=== PATIENT | female | born 1980 | race African-American/Black ===

== ENCOUNTER 2017-03-02 13:37 | Emergency (ER) | payer BC ==
[2017-03-02 13:45] VITALS: BP 144/89; PULSE 78; TEMP 98.5; BMI 42.3
--- NOTE | 2017-03-02 14:02 | PDOC ---
Attending Attestation - Resident Resident Name: Hermelindo Monk - ED Attending Attestation I have performed the following: I have examined & evaluated the patient, The case was reviewed & discussed with the resident, I agree w/resident's findings & plan, Exceptions are as noted - HPI HPI: 03/02/17 14:41 36y F hx of gestational htn, presents with htn, headache. The patient notes she formerly was on amlodipine but stopped taking it earlier this year. The pt had intermittent headache, and endorsed having a pounding headache when she woke up this morning, it was diffuse, moderate, no associated visionchanges, n/v, neck pain, she took a motrin with significant improvement. The pt ntoes she also had some tingling on her L arm when she woke up for several minutes. she notes she typically sleeps n her left arm. The patient denies any chest pain, sob, leg swelling, bateman, vision changes, back pain, abd pain. pts exam unremarkable general: no distress, well appearing, smiling, cardiac exam: rrr. no mrg pulm: clear to ascultation LE: no lower extremity edema vitals noted for borderline htn - tension headache suspect her arm tingling secondary to peripheral neuropathy fromsleeping on it asymptomatic htn will dc with pmd fu return precautions were discussed I discussed the physical exam findings, ancillary test results and final diagnoses with the patient. I answered all of the patient's questions. The patient was satisfied with the care received and felt comfortable with the discharge plan and treatment plan. The patient will call their primary care physician within 24 hours to arrange follow-up and will return to the Emergency Department with any new, persistent or worsening symptoms. - Physicial Exam PE: 03/02/17 14:48 see above - Medical Decision Making 03/02/17 14:48 see above
[2017-03-02] MEDS ORDERED: ACETAMINOPHEN 325 MG TABLET (FP) PO ONE (14:10)
--- NOTE | 2017-03-02 14:18 | PDOC ---
History of Present Illness <MarkBenedicto - Last Filed: 03/02/17 14:52> - History of Present Illness Initial Comments: 03/02/17 14:13 The patient 36 year old female with a history of HTN who presents for evaluation of headache. The patient reports that she woke up this morning with a pounding headache that she describes as a migraine. She took some advil which improved her headache, however was concerned that her BP was elevated and decided to present to the ED for evaluation. She states that she take amlodipine for BP management, but ran out several months ago and has not taken it. She states she does not have a primary care provider that she follows with on a regular basis. She denies vision changes, fevers, chills, SOB, chest pain , abdominal pain, or changes with urination or bowel movements. <Hermelindo Monk - Last Filed: 03/02/17 15:12> - General Chief Complaint: Blood Pressure Problem Stated Complaint: HEADACHES, HIGH BP Time Seen by Provider: 03/02/17 13:53 Past History <Benedicto Flores - Last Filed: 03/02/17 14:52> - Past Medical History COPD: No HTN: Yes - Suicide/Smoking/Psychosocial Hx Smoking Status: No Smoking History: Never smoked Number of Cigarettes Smoked Daily: 0 Hx Alcohol Use: Yes (SOCIAL) Drug/Substance Use Hx: No Substance Use Type: None <Hermelindo Monk - Last Filed: 03/02/17 15:12> - Past Medical History Allergies/Adverse Reactions: Allergies Allergy/AdvReac Type Severity Reaction Status Date / Time No Known Allergies Allergy Verified 03/02/17 14:14 Home Medications: Ambulatory Orders NK [No Known Home Medication] 03/02/17 Review of Systems - Review of Systems Comments:: 03/02/17 14:24 Constitutional: No fevers, chills, fatigue, malaise HEENT: No Rhinorrhea, nasal congestion, visual changes Cardiovascular: No chest pain, syncope, palpitations, lightheadedness Respiratory: No Cough, SOB, Hemoptysis, Gastrointestinal: No Abdominal pain, Nausea, Vomiting, Constipation, Diarrhea, Melena Genitourinary: No Dysuria, Frequency, Urgency, Hesitancy, Hematuria, Flank pain Musculoskeletal: No Myalgia, arthralgia Skin: No rashes, bruising, pallor Neurologic: Headache. No Dizziness, Numbness, Weakness, or Tingling Psychiatric: No Hallucinations. No SI or HI <Hermelindo Monk - Last Filed: 03/02/17 15:12> *Physical Exam - Vital Signs Last Vital Signs Temp Pulse Resp BP Pulse Ox 98.5 F 78 20 144/89 99 03/02/17 13:40 03/02/17 13:40 03/02/17 13:40 03/02/17 13:40 03/02/17 13:40 <Benedicto Flores - Last Filed: 03/02/17 14:52> - Vital Signs Last Vital Signs Temp Pulse Resp BP Pulse Ox 98.5 F 78 20 144/89 99 03/02/17 13:40 03/02/17 13:40 03/02/17 13:40 03/02/17 13:40 03/02/17 13:40 - Physical Exam Comments: 03/02/17 14:25 General Appearance: Nourished. No Apparent Distress HEENT: EOMI, LUCHO. No Pharyngeal Erythema, Tonsillar Exudate, Tonsillar Erythema Neck: No Cervical Lymphadenopathy Respiratory/Chest: Lungs Clear, Normal Breath Sounds. No Crackles, Rales, Rhonchi, Wheezing Cardiovascular: Regular Rhythm, Regular Rate. No JVD, Murmur, Gallops, Rubs Gastrointestinal/Abdominal: Normal Bowel Sounds, Soft. No Guarding, Rebound, Tenderness Musculoskeletal: No CVA Tenderness Extremity: Normal Capillary Refill Integumentary: Normal Color, Dry, Warm Neurologic: speech pathologist assistant II-XII NML intact, Fully Oriented, Alert, Normal Mood/Affect, Normal Response, <Hermelindo Monk - Last Filed: 03/02/17 15:12> ED Treatment Course - Medications Given in the ED: ED Medications Discontinued Medications Generic Name Dose Route Start Last Admin Trade Name Freq PRN Reason Stop Dose Admin Acetaminophen 650 mg 03/02/17 14:10 03/02/17 14:25 Tylenol - PO 03/02/17 14:11 650 mg ONCE ONE Administration <Benedicto Flores - Last Filed: 03/02/17 14:52> Medical Decision Making - Medical Decision Making 03/02/17 14:25 The patient 36 year old female with a history of HTN who presents for evaluation of headache. The patient's BP in triage is 144/89 and appears clinically well on exam. Her headache is likely due to her elevated pressure and her elevated pressure is likely due to medication non-compliance. We discussed the importance of taking her medication to manage her pressures. She requested a referral for a primary care provider to follow up with. We will treat her headache here in the ED with tylenol and reassess. 03/02/17 15:00 The patient reports improvement in her symptoms. We will refer the patient to a primary care provider for further management of blood pressure. We discussed the plan with the patient who voiced understanding and is agreeable. <Hermelindo Monk - Last Filed: 03/02/17 15:12> *DC/Admit/Observation/Transfer - Discharge Dispostion Admit: No <Benedicto Flores - Last Filed: 03/02/17 14:52> - Discharge Dispostion Admit: No <Hermelindo Monk - Last Filed: 03/02/17 15:12> Diagnosis at time of Disposition: Tension headache, Elevated blood pressure - Discharge Dispostion Disposition: HOME Condition at time of disposition: Improved - Referrals Referrals: [facility] [place] [facility] [place] [Provider Group] - Patient Instructions Printed Discharge Instructions: DI for High Blood Pressure Additional Instructions: Return to the emergency department immediately with ANY new, persistent or worsening symptoms. Your blood pressure is slightly elevated here please follow-up with your doctor to have this evaluated for the need of medical management. You MUST call and follow up with your doctor tomorrow for further evaluation of your symptoms. Results were discussed with you. Please make sure your doctor reviews the results of your emergency evaluation. Print Language: PASHTO
[2017-03-02] MEDS ORDERED: ACETAMINOPHEN 325 MG TABLET (FP) ONE (14:23)
== END 2017-03-02 15:07 | disposition home or self-care (01) ==
LOC: JER 13:37
DX: G44.209 Tension-type headache, unspecified, not intractable (principal); I10 Essential (primary) hypertension
CPT/HCPCS: 99282-25

== ENCOUNTER 2019-05-15 09:16 | Emergency (ER) | payer BC ==
[2019-05-15 09:31] VITALS: BP 156/90; PULSE 112; TEMP 102; BMI 39.9
[2019-05-15] MEDS ORDERED: IBUPROFEN 600 MG TABLET (FP) PO ONE ×2 (09:58→10:00)
--- NOTE | 2019-05-15 10:46 | PDOC ---
History of Present Illness - General Chief Complaint: Cold Symptoms Stated Complaint: COLD SYMPTOMS Time Seen by Provider: 05/15/19 09:31 History Source: Patient Exam Limitations: No Limitations - History of Present Illness Initial Comments: 05/15/19 10:47 Patient is a 38-year-old female who presents to the ED with complaint of fever, body aches and sore throat since yesterday. She states it started after she got home from work yesterday. 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 The patient has a history of hypertension and denies any allergies to medications. She does admit to taking DayQuil which did not help her very much. She denies any shortness of breath or cough. Past History - Past Medical History Allergies/Adverse Reactions: Allergies Allergy/AdvReac Type Severity Reaction Status Date / Time No Known Allergies Allergy Verified 05/15/19 09:26 Home Medications: Ambulatory Orders Penicillin V Potassium [Pen Vee K -] 500 mg PO BID 10 Days #20 tablet 05/15/19 COPD: No HTN: Yes - Immunization History Immunization Up to Date: Yes - Psycho Social/Smoking Cessation Hx Smoking Status: No Smoking History: Unknown if ever smoked Have you smoked in the past 12 months: No Number of Cigarettes Smoked Daily: 0 Information on smoking cessation initiated: No Hx Alcohol Use: No Drug/Substance Use Hx: No Substance Use Type: None Review of Systems - Review of Systems Comments:: 05/15/19 10:48 - Review of Systems Able to Perform ROS?: Yes Constitutional: No: Loss of Appetite, Night Sweats, Weakness; Positive: Fever, Chills HEENTM: No: Eye Pain, Vision changes, Ear Pain, Throat Swelling, Mouth Pain, Difficulty Swallowing; Positive: Throat Pain Respiratory: No: Cough, Shortness of Breath, Wheezing, Sputum Production Cardiac (ROS): No: Chest Pain, Chest Tightness, Palpitations, Irregular Heart Beat, Edema ABD/GI: No: Nausea, Vomiting, Abdominal Pain, Diarrhea : No Dysuria, No Hematuria, No Frequency, No Urgency Musculoskeletal: No: Muscle Pain, Back Pain, Joint Pain, Muscle Weakness, Neck Pain Integumentary: No: Lesions, Rash Neurological: No: Headache, Numbness, Tingling, Weakness, Speech Difficulties *Physical Exam - Vital Signs Last Vital Signs Temp Pulse Resp BP Pulse Ox 102.0 F H 112 H 16 156/90 100 05/15/19 09:20 05/15/19 09:20 05/15/19 09:20 05/15/19 09:20 05/15/19 09:20 - Physical Exam 05/15/19 10:49 - Physical Exam General Appearance: Nourished, Appropriately Dressed, No Distress, Nontoxic appearing HEENT: EOMI, Normal Voice, No Muffled/Hoarse voice, No Nasal Congestion, No Rhinorrhea, Hearing Grossly Normal, TMs Normal, No TM Bulging, No TM Dullness, No TM Erythema; Positive pharyngeal and tonsillar erythema with exudates appreciated on the left. Airway patent. Uvula nonedematous. Neck: Supple, Anterior cervical lymphadenopathy appreciated bilateral. No Rigidity, No Decreased range of motion Respiratory/Chest: Lungs Clear, Normal Breath Sounds. No Respiratory Distress, No Accessory Muscle Use Cardiovascular: Regular Rhythm, Regular Rate, S1, S2 Gastrointestinal/Abdominal: Normal Bowel Sounds, Soft. Musculoskeletal: Normal Inspection. No Decreased Range of Motion Extremity: Normal Capillary Refill, Normal Inspection Integumentary: Normal Color, Dry. No Rash Neurologic: car groomer II-XII NML intact, Fully Oriented, Alert, Normal Mood/Affect, Normal Response ED Treatment Course - Medications Given in the ED: ED Medications Discontinued Medications Generic Name Dose Route Start Last Admin Trade Name Tomq PRN Reason Stop Dose Admin Ibuprofen 600 mg 05/15/19 09:58 05/15/19 10:01 Motrin - PO 05/15/19 09:59 600 mg ONCE ONE Administration Medical Decision Making - Medical Decision Making 05/15/19 9:50 Patient is a 38-year-old female with fever, sore throat and body aches. -A strep and a flu swab were sent -Motrin was given in the ED -Will reassess 05/15/19 10:51 The patient has been made aware that she has strep pharyngitis. Prescription for penicillin VK was sent to her pharmacy. She should get plenty rest and drink plenty of fluids. She has been instructed to take her antibiotics and complete the entire course, and to take Tylenol or ibuprofen for fevers or pain.. She has been encouraged to follow-up with her primary doctor within 1 to 2 days for repeat evaluation. She understands and agrees with this treatment and plan and she is stable for discharge. Discharge - Discharge Information Problems reviewed: Yes Clinical Impression/Diagnosis: Strep throat Condition: Stable Disposition: HOME - Additional Discharge Information Prescriptions: Penicillin V Potassium [Pen Vee K -] 500 mg PO BID 10 Days #20 tablet - Follow up/Referral Referrals: Med Samson MD [Primary Care Provider] - - Patient Discharge Instructions Patient Printed Discharge Instructions: DI for Strep Throat Additional Instructions: Get plenty of rest and drink plenty of fluids. Take the antibiotics as prescribed and complete the entire course even if you feel better. Take Tylenol or ibuprofen for fevers. Follow-up with your primary doctor within 1 to 2 days for repeat evaluation. - Post Discharge Activity Work/Back to School Note: Back to Work
== END 2019-05-15 10:55 | disposition home or self-care (01) ==
LOC: JER 09:16
DX: J02.0 Streptococcal pharyngitis (principal); B95.0 Streptococcus, group A, as the cause of diseases classified elsewhere
CPT/HCPCS: 87804; 87880; 99281-25

== ENCOUNTER 2021-02-05 04:27 | Day surgery (SDC) | payer BC ==
[2021-02-01 10:15] VITALS: BMI 39.9
[2021-02-05] MEDS ORDERED: PROPOFOL 20 ML ONE (07:21)
[2021-02-05] MEDS ORDERED: MIDAZOLAM HCL 2 MG/2 ML SINGLE DOSE VIAL ONE (07:21)
[2021-02-05] MEDS ORDERED: SEVOFLURANE 250 ML BTL ONE (07:23)
[2021-02-05] MEDS ORDERED: ceFAZolin SODIUM 1 GM VIAL IVPB ONE (08:45)
[2021-02-05] MEDS ORDERED: KETOROLAC TROMETHAMINE 30 MG/1 ML VIAL ONE ×2 (09:38→10:24)
[2021-02-05] MEDS ORDERED: ceFAZolin SODIUM 1 GM VIAL ONE (09:38)
[2021-02-05] MEDS ORDERED: LIDOCAINE HCL/PF 2% SDV 5ML VIAL ONE (09:38)
[2021-02-05] MEDS ORDERED: DEXAMETHASONE SOD PHOSPHATE 4 MG/1 ML VIAL ONE (09:38)
[2021-02-05] MEDS ORDERED: ACETAMINOPHEN INJECTION 100 ML IVPB ONE (10:00)
[2021-02-05] MEDS ORDERED: ACETAMINOPHEN 1000 MG/100 ML VIAL (NON FORMULARY) IVPB ONE ×2 (10:00→10:32)
[2021-02-05] MEDS ORDERED: ONDANSETRON 4 MG/2 ML VIAL IVPUSH PRN (10:32)
[2021-02-05] MEDS ORDERED: oxyCODONE HCL 5 MG TABLET PO PRN ×2 (10:32)
[2021-02-05] MEDS ORDERED: KETOROLAC TROMETHAMINE 30 MG/1 ML VIAL IVPUSH ONE (10:33)
[2021-02-05] MEDS ORDERED: LACTATED RINGERS SOLUTION 1,000 ML IV SCH (10:45)
[2021-02-05 11:23] VITALS: TEMP 98.5
[2021-02-05 12:38] VITALS: BP 120/70; PULSE 80
== END 2021-02-05 12:30 | disposition home or self-care (01) ==
LOC: JASU-SURG 04:27
PROVIDERS: ATTEND Obstetrics & Gynecology
PROC: 0UB98ZZ Excision of Uterus, Via Natural or Artificial Opening Endoscopic (ICD-10-PCS; principal; 2021-02-05 08:00)
PROC: 0UDB8ZX Extraction of Endometrium, Via Natural or Artificial Opening Endoscopic, Diagnostic (ICD-10-PCS; 2021-02-05 08:00)
DX: N92.0 Excessive and frequent menstruation with regular cycle (principal); D25.0 Submucous leiomyoma of uterus
CPT/HCPCS: 81025; 88305-TC; 94760; J0131

== ENCOUNTER 2021-05-03 08:23 | Emergency (ER) | payer BC ==
[2021-05-03 08:28] VITALS: BP 146/88; PULSE 88; TEMP 98.1; BMI 39.6
[2021-05-04 14:10] LABS: SARS-CoV-2 NAA Not Detected (Not Detected)
== END 2021-05-03 09:45 | disposition home or self-care (01) ==
LOC: JER 08:23
DX: J06.9 Acute upper respiratory infection, unspecified (principal); R05.9 Cough, unspecified; R09.81 Nasal congestion; J02.9 Acute pharyngitis, unspecified
CPT/HCPCS: 87651; 87804; 99283-25; C9803; U0003; U0005

== ENCOUNTER 2022-02-17 11:56 | Emergency (ER) | payer BC ==
[2022-02-17 12:03] VITALS: BP 168/92; PULSE 97; RESP 18; TEMP 99.3; BMI 39.9
[2022-02-17] MEDS ORDERED: KETOROLAC TROMETHAMINE 30 MG/1 ML VIAL IM ONE (12:56)
[2022-02-17] MEDS ORDERED: KETOROLAC TROMETHAMINE 30 MG/1 ML VIAL ONE (13:07)
[2022-02-17 13:39] LABS: THROAT:GRP A STREP NOT DETECTED (NOTDETECTED)
== END 2022-02-17 13:09 | disposition home or self-care (01) ==
LOC: JER 11:56
PROC: 3E023GC Introduction of Other Therapeutic Substance into Muscle, Percutaneous Approach (ICD-10-PCS; principal; 2022-02-17)
DX: B34.9 Viral infection, unspecified (principal)
CPT/HCPCS: 0241U-QW; 87651; 99284-25

== ENCOUNTER 2023-03-18 11:57 | Emergency (ER) | payer BC ==
[2023-03-18 12:41] VITALS: BP 165/89; PULSE 89; RESP 20; TEMP 98.2; BMI 37.5
== END 2023-03-18 15:45 | disposition left against medical advice (07) ==
LOC: JER 11:57
DX: N93.9 Abnormal uterine and vaginal bleeding, unspecified (principal)
CPT/HCPCS: 99283-25

== ENCOUNTER 2023-03-24 11:40 | Emergency (ER) | payer BC ==
[2023-03-24 12:04] VITALS: BMI 39.1
[2023-03-24 13:54] LABS: HEMATOCRIT 24.5 % (32.4-45.2); HEMOGLOBIN 7.3 GM/dL (10.7-15.3); MCHC 29.7 g/dl (32.0-36.0); MEAN CELL VOLUME 56.6 fl (80-96); MEAN PLT VOLUME 8.1 fl (7.5-11.1); PLATELET COUNT 540 10^3/uL (134-434); RBC 4.32 M/mm3 (3.60-5.2); RDW 20.9 % (11.6-15.6); WHITE BLOOD COUNT 7.1 K/mm3 (4.0-10.0)
[2023-03-24 13:55] LABS: MCH 16.8 pg (25.7-33.7)
[2023-03-24 14:01] LABS: INR 1.07 (0.83-1.09); PROTHROMBIN TIME (PATIENT) 12.4 SEC (9.7-13.0)
[2023-03-24 14:04] LABS: ACTIVATED PTT 33.3 SECONDS (25.2-36.5)
[2023-03-24 14:27] LABS: CALCIUM 9.4 mg/dL (8.5-10.1)
[2023-03-24 14:28] LABS: ALBUMIN 3.8 g/dl (3.4-5.0); BLOOD UREA NITROGEN 9.7 mg/dL (7-18)
[2023-03-24 14:30] LABS: ANISOCYTOSIS 2+; MACROCYTOSIS 0; TARGET CELLS 1+
[2023-03-24 14:31] LABS: CREATININE 0.7 mg/dL (0.55-1.3)
[2023-03-24 14:32] LABS: BILIRUBIN,TOTAL 0.7 mg/dL (0.2-1); TOT PROT 8.4 g/dl (6.4-8.2)
[2023-03-24 14:58] VITALS: TEMP 97.7
[2023-03-24 16:09] VITALS: BP 147/81; PULSE 82; RESP 18
== END 2023-03-24 15:50 | disposition home or self-care (01) ==
LOC: JER 11:40
DX: D64.9 Anemia, unspecified (principal)
CPT/HCPCS: 36415; 80053; 84484; 84703; 85025; 85610; 85730; 86850; 86900; 86901; 93005; 93010; 99284-25